=== PATIENT | female | born 1960 | race Caucasian/White ===

== ENCOUNTER 2017-02-01 17:16 | Outpatient (CLI) | payer BC ==
--- NOTE | 2017-02-01 18:13 | DIAGNOSTIC IMAGING REPORT ---
PROCEDURE: XR HIP BILATERAL INDICATION: HIP PAIN TECHNIQUE: AP view of the pelvis and hips with lateral views of the bilateral hips. COMPARISON: None. FINDINGS: RIGHT HIP: Mild right hip degenerative changes with acetabular spurring and subchondral changes. Joint space is maintained. No fracture or dislocation. LEFT HIP: Mild left acetabular spurring. No fracture or dislocation. AP PELVIS: No suspicious osseous lesion. Soft tissues are unremarkable. IMPRESSION: 1. Mild bilateral hip degenerative changes, right greater than left.
== END 2017-02-01 23:00 | disposition home or self-care (01) ==
LOC: XR SRH 17:16
DX: M16.0 Bilateral primary osteoarthritis of hip (principal)